=== PATIENT | male | born 1990 | race African-American/Black ===

== ENCOUNTER 2021-12-09 05:58 | Emergency (ER) | payer MEDICAID, OTHER ==
[~2021-12-09] VITALS: Ht 185.4 cm; Wt 135.6 kg
[2021-12-09 07:24] VITALS: BP 138/95
[2021-12-09] MEDS ORDERED: IBUP800T27 PO (07:41)
[2021-12-09] MEDS ORDERED: BACL10TA PO (07:41)
[2021-12-09] MEDS ORDERED: KETOROLAC TROMETH 60MG/2ML VIAL IM ONE (07:45)
== END 2021-12-09 07:52 | disposition home or self-care (01) ==
LOC: ER 05:58
DX: S16.1XXA Strain of muscle, fascia and tendon at neck level, initial encounter (principal); J45.909 Unspecified asthma, uncomplicated; X50.1XXA Overexertion from prolonged static or awkward postures, initial encounter; Y93.01 Activity, walking, marching and hiking; Y92.89 Other specified places as the place of occurrence of the external cause; Y99.8 Other external cause status
CPT/HCPCS: 72040; 96372; 99283; J1885